=== PATIENT | male | born 1945 | race Hispanic/Latino ===

== ENCOUNTER 2019-08-23 08:29 | Emergency (ER) | payer MEDICARE, MEDICAID ==
[2019-08-23] MEDS ORDERED: HYDROcodone/Acetaminophen 5/325 mg Tablet ONE (08:43)
--- NOTE | 2019-08-23 08:55 | RAD ---
Left hand:3 views. INDICATIONS:Injury with pain. COMPARISON:None FINDINGS: Mild degenerative change at the first carpal metacarpal and at the scaphotrapezium. Metacarpals appear intact. Phalanges appear intact. MCP joints unremarkable. Mild degenerative change at the IP joints. No soft tissue abnormality. IMPRESSION: No acute finding
== END 2019-08-23 09:03 | disposition home or self-care (01) ==
LOC: SCSER 08:29
DX: L03.114 Cellulitis of left upper limb (principal); E11.9 Type 2 diabetes mellitus without complications; Z79.4 Long term (current) use of insulin
CPT/HCPCS: 36416